=== PATIENT | female | born 1995 | race Caucasian/White ===

== ENCOUNTER 2019-03-21 20:30 | Emergency (ER) | payer OTHER, SELFPAY ==
[~2019-03-21] VITALS: Ht 157.5 cm; Wt 79.4 kg
[~2019-03-21 20:30] MED LIST: CYCL10TA2 PO
[2019-03-21 20:53] VITALS: BP 141/88
--- NOTE | 2019-03-21 21:44 | PHYS DOC ---
Past Medical History Past Medical History: No Pertinent History (SOFIA GUPTA APRN) Past Surgical History: No Surgical History (SOFIA GUPTA APRN) Smoking: Cigarettes, Less than 1pk/day Additional Information: smoker Alcohol Use: None Drug Use: None (SOFIA GUPTA APRN) Adult General Chief Complaint Chief Complaint: TOE PROBLEM HPI HPI Patient is a 23-year-old female that presents with inflammation of the left great toe. Toe was stepped on 2 weeks ago. 1.5 weeks ago the toe started hurting. Pain is 10/10 and throbbing. No associated symptoms are present. (SOFIA GUPTA APRN) Review of Systems Review of Systems Constitutional: Denies fever but sometimes feels hot.[] Eyes: Denies change in visual acuity, redness, or eye pain [] HENT: Denies nasal congestion or sore throat [] Respiratory: Denies cough or shortness of breath [] Cardiovascular: No additional information not addressed in HPI [] GI: Denies abdominal pain, nausea, vomiting, bloody stools or diarrhea [] : Denies dysuria or hematuria [] Musculoskeletal: Denies back pain or joint pain [] Integument: Inflammation to the L Great toe. Neurologic: Denies headache, focal weakness or sensory changes [] Endocrine: Denies polyuria or polydipsia [] Complete systems were reviewed and found to be within normal limits, except as documented in this note. (SOFIA GUPTA APRN) Current Medications Current Medications Current Medications Medications (Trade) Dose Ordered Sig/Jenna Start Time Stop Time Status Last Admin Dose Admin Lidocaine HCl (Lidocaine 1% 20ml Vial) 10 ml 1X ONCE 03/21/19 21:45 03/21/19 21:46 DC 03/21/19 22:00 10 ML Silver Nitrate/ Potassium Nitrate 3 each 1X ONCE 03/21/19 21:45 03/21/19 21:46 DC 03/21/19 22:00 3 EACH (MICHAEL FRENCH MD) Allergies Allergies Allergies Coded Allergies Type Severity Reaction Last Updated Verified No Known Drug Allergies 11/09/16 No (MICHAEL FRENCH MD) Physical Exam Physical Exam Constitutional: Well developed, well nourished, no acute distress, non-toxic appearance. [] HENT: Normocephalic, atraumatic, bilateral external ears normal, oropharynx moist, no oral exudates, nose normal. [] Eyes: PERRLA, EOMI, conjunctiva normal, no discharge. [] Neck: Normal range of motion, no tenderness, supple, no stridor. [] Cardiovascular:Heart rate regular rhythm, no murmur [] Lungs & Thorax: Bilateral breath sounds clear to auscultation [] Abdomen: Bowel sounds normal, soft, no tenderness, no masses, no pulsatile masses. [] Skin: Warm, dry, no erythema, no rash. Patient has ingrown toe on the left great toe. Has inflammation surrounding the toe. Tender to touch. Extremities: No tenderness, no cyanosis, no clubbing, ROM intact, no edema. [] Neurologic: Alert and oriented X 3, normal motor function, normal sensory function, no focal deficits noted. [] Psychologic: Affect normal, judgement normal, mood normal. [] (SOFIA GUPTA APRN) Current Patient Data Vital Signs Vital Signs Date Time Temp Pulse Resp B/P (MAP) Pulse Ox O2 Delivery O2 Flow Rate FiO2 03/21/19 20:53 97.7 79 14 141/88 (105) 99 Room Air 97.7 (MICHAEL FRENCH MD) EKG EKG [] (SOFIA GUPTA APRN) Radiology/Procedures Radiology/Procedures Performed a digital block to the R great toe. Injected 1.5 mL of lidocaine on each side of toe. Once the toe was numb. The toe was cleaned with iodine. The toenail was lifted and removed. Silver nitrate was used to stop bleeding. Toe was then wrapped with pressure dressing. No complications. (SOFIA GUPTA APRN) Course & Med Decision Making Course & Med Decision Making Pertinent Labs and Imaging studies reviewed. (See chart for details) Discussed with patient that this is a Paronychia and I can do a procedure to cut the nail where it is not ingrown. Before the procedure I would perform a digital block. The patient is agreeable. (SOFIA GUPTA APRN) Course & Med Decision Making Staff Physician Addendum: I was working in the ER during the course of this patient's visit. I was available for consultation as needed, but I was not directly involved in the care of this patient. (MICHAEL FRENCH MD) Dragon Disclaimer Dragon Disclaimer This electronic medical record was generated, in whole or in part, using a voice recognition dictation system. (SOFIA GUPTA APRN) Departure Departure Impression: Primary Impression: Parolucya Disposition: 01 HOME, SELF-CARE Condition: STABLE Referrals: NO PCP (PCP) Patient Instructions: Lucio, [id number] Additional Instructions: Please follow up as needed with your primary care doctor. Return to ER if symptoms worsen. Ibuprofen per label instruction for pain/inflammation. SOFIA GUPTA APRN March 21, 2019 21:43 MICHAEL FRENCH MD March 25, 2019 11:24
[2019-03-21] MEDS ORDERED: SILVER NITRATE STICK TP ONE (21:45)
[2019-03-21] MEDS ORDERED: LIDOCAINE 1% Multi-Dose 20 ML VIAL. ID ONE (21:45)
== END 2019-03-21 23:21 | disposition home or self-care (01) ==
LOC: ER 20:30
DX: L03.032 Cellulitis of left toe (principal); L60.0 Ingrowing nail; F17.210 Nicotine dependence, cigarettes, uncomplicated
CPT/HCPCS: 11730; 99283-25